=== PATIENT | female | born 1980 | race African-American/Black ===

== ENCOUNTER 2016-11-05 11:17 | Emergency (ER) | payer OTHER ==
[~2016-11-05] VITALS: Ht 162.6 cm; Wt 92.1 kg
--- NOTE | ~2016-11-05 | CR172 ---
[facility] A Service of [facility] RADIOLOGY TEXT RESULTS PATIENT: RADHA CONSTANTINO LOCATION: CFTX : 80 UNIT #: [id number] AGE: [address]: Nicolette Beltrán SEX: F ORDER DR: [id number] [facility] [address] [place], [place] [address] [id number] E MR#: [id number] Acc #: [id number] NAME: RADHA CONSTANTINO : 1980 SEX: F STUDY DATE/TIME: 11/05/2016 11:58 UNIT: [facility] ROOM: STUDY DESCRIPTION: CR Knee 3 Views Lt Attending Physician: Nicolette Beltrán P.A.-C. Ordering Physician: Nicolette Beltrán P.A.-C. Primary Care Physician: [facility] MEDICAL IMAGING REPORT This report is preliminary unless electronic signature is present EXAM Left knee series 11/05/2016 HISTORY Trauma. Pain with weight bearing or bending 1 week. Patient fell. FINDINGS AP lateral and sunrise views of the left knee are presented. No traumatic fracture or malalignment. No soft tissue defect, subcutaneous air or radiodense foreign body. No joint effusion. There is a small fabella posteriorly. If the patient has persistent symptoms and it would assist in management, knee could be further evaluated with elective MRI. Dictated by... Diogo Jin M.D. THIS IS AN ELECTRONICALLY VERIFIED REPORT Diogo Jin M.D. at 11/06/2016 7:30 PM RORO/zaid TD: 11/05/2016 21:35 JOB #: [id number] MEDICAL IMAGING REPORT Page 1 of 1 COPY
== END 2016-11-05 12:45 | disposition home or self-care (01) ==
LOC: CFTX 11:17 → CED 11:17 → CFTX 12:24
DX: S83.412A Sprain of medial collateral ligament of left knee, initial encounter (principal); F17.210 Nicotine dependence, cigarettes, uncomplicated; X50.1XXA Overexertion from prolonged static or awkward postures, initial encounter; Y92.009 Unspecified place in unspecified non-institutional (private) residence as the place of occurrence of the external cause
CPT/HCPCS: 29505; 73562; 99283